=== PATIENT | male | born 1950 ===

== ENCOUNTER 2019-05-14 06:42 | Day surgery (SDC) | payer MEDICARE, OTHER ==
[~2019-05-14] VITALS: Ht 172.7 cm; Wt 84.0 kg
[~2019-05-14 06:42] MED LIST: Prinivil10 MG PO
== END 2019-05-14 08:56 | disposition home or self-care (01) ==
LOC: ORSCSDS 06:42
PROVIDERS: Ophthalmology
PROC: 08RK3JZ Replacement of Left Lens with Synthetic Substitute, Percutaneous Approach (ICD-10-PCS; principal; 2019-05-14 08:00)
DX: H25.12 Age-related nuclear cataract, left eye (principal); F17.210 Nicotine dependence, cigarettes, uncomplicated
CPT/HCPCS: J2250; J3010; V2632